=== PATIENT | male | born 1985 | race African-American/Black ===

== ENCOUNTER 2018-03-17 15:02 | Emergency (ER) | payer BC ==
[~2018-03-17] VITALS: Ht 180.3 cm; Wt 88.9 kg
[~2018-03-17 15:02] MED LIST: AMOXICILLIN 50500 M1 PO; TRAMADOL 50 MG50 MG PO
[2018-03-17 15:26] LABS: ABSOLUTE BASOPHILS 0.1 thou/uL (0.0-0.2); ABSOLUTE EOSINOPHILS 0.1 thou/uL (0.0-0.7); ABSOLUTE LYMPHOCYTES 1.9 thou/uL (0.8-5.3); ABSOLUTE MONOCYTES 0.6 thou/uL (0.0-1.2); ABSOLUTE NEUTROPHILS 3.4 thou/uL (1.6-8.1); BASOPHILS 1.4 %; EOSINOPHILS 1.9 %; HEMATOCRIT 44.3 % (42.0-52.0); LYMPHOCYTES 31.5 %; MCH 28.9 pg (26.0-34.0); MCHC 33.8 g/dL (28.0-37.0); MCV 85.2 fL (80.0-100.0); MONOCYTES 9.4 %; MPV 8.2 fl. (7.2-11.1); NUCLEATED RBCS 0 /100WBC; PLATELET COUNT* 221 thou/uL (150-400); POLYS 55.8 %; RDW-CV 12.9 % (10.5-14.5); WBC 6.1 thou/uL (4.0-11.0)
[2018-03-17 15:37] LABS: APTT 28.4 Seconds (25.0-31.3); INR 1.1; PROTIME 10.6 Seconds (9.20-11.50)
[2018-03-17 15:39] LABS: ANION GAP 5 mmol/L (7-16); BUN 13 mg/dL (7-18); CALCIUM 8.9 mg/dL (8.5-10.1); CHLORIDE 103 mmol/L (98-107); CO2 31 mmol/L (21-32); GLUCOSE 121 mg/dL (70-99); POTASSIUM 3.9 mmol/L (3.5-5.1); SODIUM 139 mmol/L (136-145)
[2018-03-17 15:55] LABS: ALBUMIN 3.4 g/dL (3.4-5.0); ALKALINE PHOSPHATASE 69 U/L (46-116); CK-MB MASS 0.5 ng/mL (<0.5-3.6); LIPASE 242 U/L (73-393); MAGNESIUM 1.6 mg/dL (1.8-2.4); NT-PRO BRAIN NAT PEPTIDE 15 pg/mL (<300); SGOT 25 U/L (15-37); SGPT 39 U/L (30-65); TOTAL BILIRUBIN 0.5 mg/dL (<0.1-1.0); TOTAL PROTEIN 8.4 g/dL (6.4-8.2); TROPONIN-I LEVEL <0.06 ng/mL (<0.06)
[2018-03-17 16:01] VITALS: BP 156/95
--- NOTE | 2018-03-18 14:46 | EKG ---
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1985 Requested By: Guero Colin Order Number: [id number] MD: Joel Shafer Measurements Intervals [place] Rate: 74 P: 47 PA: 151 QRS: 13 QRSD: 93 T: 16 QT: 369 QTc: 410 Interpretive Statements Sinus rhythm ST elev, probable normal early repol pattern Baseline wander in lead(s) I,II,aVR,V3,V4,V5,V6 No previous ECG available for comparison Electronically Signed On 03-18-2018 14:46:22 CDT by Joel Shafer [email or web address] <ELECTRONICALLY SIGNED> By: Joel Shafer MD, [facility] 03/18/18 1446 1506 1506 Joel Shafer MD, [facility] /EPI
== END 2018-03-17 16:09 | disposition home or self-care (01) ==
LOC: M.ERS 15:02
PROVIDERS: Family Medicine
DX: R07.9 Chest pain, unspecified (principal)